=== PATIENT | male | born 1990 | race Caucasian/White ===

== ENCOUNTER 2018-03-06 19:13 | Emergency (ER) | payer OTHER ==
[~2018-03-06] VITALS: Ht 167.6 cm; Wt 61.2 kg
[2018-03-06 19:19] VITALS: BP 117/86
--- NOTE | 2018-03-06 20:05 | ED GENERAL ADULT ---
History of Present Illness General Chief Complaint: General Adult Stated Complaint: PT IS LOOKING FOR METHADONE MISS HIS APPOINTMENT Source: patient Exam Limitations: no limitations Vital Signs & Intake/Output Vital Signs & Intake/Output Vital Signs Date Time Temp Pulse Resp B/P B/P Pulse O2 O2 Flow FiO2 Mean Ox Delivery Rate 03/06 2152 Room Air 03/06 1919 98.4 79 16 117/86 98 Room Air Allergies Coded Allergies: No Known Allergies (03/06/18) Reconcile Medications Methadone Hydrochloride (Methadone HCl) 10 MG TABLET 6 TAB PO D SUBSTANCE ABUSE (Reported) Triage Note: PT MISSED HIS METHADONE APPOINTMENT THIS AM. NEEDS HIS MEDICATION. TAKES 60 MG DAILY. Triage Nurses Notes Reviewed? yes Onset: Abrupt Duration: hour(s): Timing: constant HPI: 27 y/o male with a h/o opiate dependence (on methadone) presenting for his daily methadone dose. Pt reports he goes to [facility] ([facility]) in [place] for his daily dose of methadone, which is 60 mg daily. Missed his appt this morning because his car broke down. States that he was trying to wait until his dose tomorrow morning, but is beginning to experience withdrawal symptoms and felt that he couldn't wait until tomorrow. Denies any illicit drug use or ETOH use today. (Esther Banerjee) Past History Travel History Traveled to [place] past 21 day No Medical History Any Pertinent Medical History? see below for history Psychiatric: opioid dependence Surgical History Surgical History: non-contributory Psychosocial History What is your primary language Italian Tobacco Use: Current Daily Use Daily Tobacco Use Amount/Type: => 5 Cigarettes daily Family History Hx Contributory? No (Esther Banerjee) Review of Systems Review of Systems Constitutional: Reports: no symptoms. EENTM: Reports: no symptoms. Respiratory: Reports: no symptoms. Cardiovascular: Reports: no symptoms. GI: Reports: no symptoms. Genitourinary: Reports: no symptoms. Musculoskeletal: Reports: no symptoms. Skin: Reports: no symptoms. Neurological/Psychological: Reports: no symptoms. Hematologic/Endocrine: Reports: no symptoms. Immunologic/Allergic: Reports: no symptoms. All Other Systems: Reviewed and Negative (Esther Banerjee) Physical Exam Physical Exam General Appearance: well developed/nourished, no apparent distress, alert, awake , comfortable Head: atraumatic, normal appearance Eyes: Bilateral: normal appearance. Neck: normal inspection Respiratory: normal breath sounds, lungs clear Cardiovascular: regular rate/rhythm Gastrointestinal: soft, non-tender Back: normal inspection Extremities: normal inspection Neurologic/Psych: awake, alert, oriented x 3, normal gait, normal mood/affect Skin: intact, normal color, warm/dry Core Measures ACS in differential dx? No CVA/TIA Diagnosis: No Sepsis Present: No Sepsis Focused Exam Completed? No (Esther Banerjee) Progress Differential Diagnoses I considered the following diagnoses in my evaluation of the patient: [opiate dependence, low concern for intoxication] Plan of Care: Spoke with the applications packager provider for [facility] in [place] who reports the pt is not a client of their, but is a client of their partner company and that they can still access the records. Report pt did no recieve his dose today, confirmed his daily dose is 60mg, and there there is no reason he was denied today. Pt was cleared to receive his dose with the ER tonight. Pt given his 60mg dose and cleared for discharge. Given strict return precautions. Initial ED EKG: none (Esther Banerjee) Departure Departure Disposition: HOME OR SELF CARE Condition: Stable Clinical Impression Primary Impression: Opiate dependence Referrals: Patient Has No Primary Care Dr (PCP/Family) Additional Instructions: Follow-up with [facility] for reevaluation. Return to the emergency department for any new or worsening symptoms. Departure Forms: Customer Survey General Discharge Information (Esther Banerjee) PA/TESTING AND REGULATING CHIEF Co-Sign Statement Statement: ED Attending supervision documentation- [] I saw and evaluated the patient. I have also reviewed all the pertinent lab results and diagnostic results. I agree with the findings and the plan of care as documented in the PA's/TESTING AND REGULATING CHIEF's documentation. [X] I have reviewed the ED Record and agree with the PA's/TESTING AND REGULATING CHIEF's documentation. [] Additions or exceptions (if any) to the PAs/TESTING AND REGULATING CHIEF's note and plan are summarized below: [] (Milad Astorga DO) Critical Care Note Critical Care Note Critical Care Time: non-applicable (Esther Banerjee)
[2018-03-06] MEDS ORDERED: METHADONE HCL10 M1 PO (22:44)
== END 2018-03-06 23:07 ==
LOC: ERH 19:13
DX: F11.20 Opioid dependence, uncomplicated (principal)